=== PATIENT | male | born 1960 | race Caucasian/White ===

== ENCOUNTER 2017-11-27 07:23 | Emergency (ER) | payer OTHER, BC ==
[2017-11-27 07:35] VITALS: RESP 18; TEMP 98.2
[2017-11-27] MEDS ORDERED: SODIUM CHLORIDE 0.9% 1,000 ML IV STA (07:44)
--- NOTE | 2017-11-27 07:47 | ED ---
General Adult HPI - General Chief complaint: Abdominal Pain Stated complaint: Abdominal Pain Time Seen by Provider: 11/27/17 07:38 Source: patient, RN notes reviewed Mode of arrival: ambulatory Limitations: no limitations - History of Present Illness Initial comments: Patient's a 56-year-old male presented to the emergency room today with a chief complaint of right-sided abdominal pain on and off over the last month. Patient does admit that it was worse over the last 2 days. He states it was a sharp pain now is more just a dull pain located in the right side of the abdomen. Currently rates it a /10. He states he has noticed some bouts of some constipation at times but states he has been having normal bowel movements. He does admit that at times be worse after eating. Patient denies any other complaints or symptoms currently. Patient denies any recent fever, chills, shortness of breath, chest pain, back pain, dysuria or hematuria, constipation or diarrhea, headaches or visual changes, or any other complaints. - Related Data Home Medications Medication Instructions Recorded Confirmed Aspirin EC [Ecotrin Low Dose] 81 mg PO DAILY 11/27/17 11/27/17 Glimepiride [Amaryl] 1 mg PO BID 11/27/17 11/27/17 Lisinopril [Zestril] 2.5 mg PO DAILY 11/27/17 11/27/17 Pravastatin Sodium [Pravachol] 80 mg PO HS 11/27/17 11/27/17 metFORMIN HCL ER [Glucophage Xr] 500 mg PO DAILY 11/27/17 11/27/17 Allergies Allergy/AdvReac Type Severity Reaction Status Date / Time No Known Allergies Allergy Verified 11/27/17 07:54 Review of Systems ROS Statement: Those systems with pertinent positive or pertinent negative responses have been documented in the HPI. ROS Other: All systems not noted in ROS Statement are negative. Past Medical History Past Medical History: Diabetes Mellitus, Hyperlipidemia, Hypertension Additional Past Medical History / Comment(s): peptic ulcers History of Any Multi-Drug Resistant Organisms: None Reported Past Surgical History: Tonsillectomy Additional Past Surgical History / Comment(s): R heel surgery Past Psychological History: No Psychological Hx Reported Smoking Status: Never smoker Past Alcohol Use History: Occasional Past Drug Use History: None Reported General Exam - General Exam Comments Initial Comments: General: The patient is awake and alert, in no distress, and does not appear acutely ill. Eye: Extra-ocular movements are intact. No nystagmus. There is normal conjunctiva bilaterally. No signs of icterus. Ears, nose, mouth and throat: There are moist mucous membranes and no oral lesions. Neck: The neck is supple, there is no tenderness or JVD. Cardiovascular: There is a regular rate and rhythm. No murmur, rub or gallop is appreciated. Respiratory: Lungs are clear to auscultation, respirations are non-labored, breath sounds are equal. No wheezes, stridor, rales, or rhonchi. Gastrointestinal: Soft on palpation. Patient does have tenderness right lower quadrant. No rebound, guarding or CVA tenderness. Musculoskeletal: Normal ROM, no tenderness. Sensation intact. Strength 5/5. Pulses equal bilaterally 2+. Neurological: A&O x 3. CN II-XII intact, There are no obvious motor or sensory deficits. Coordination appears grossly intact. Speech is normal. Skin: Skin is warm and dry and no rashes or lesions are noted. Psychiatric: Cooperative, appropriate mood & affect, normal judgment. Limitations: no limitations Course Vital Signs 11/27/17 07:31 Temperature 98.2 F Pulse Rate 83 Respiratory 18 Rate Blood Pressure 145/93 O2 Sat by Pulse 96 Oximetry Medical Decision Making - Medical Decision Making Patient reexamined at this time shows no signs of stress is resting comfortably. His abdomen soft on palpation. Has minimal to no tenderness at this time. His CT of the abdomen and pelvis shows fatty liver and prostate hypertrophy. Results were discussed with the patient. There is no other sign of inflammation. Shows a normal gallbladder. Was discussed with patient about further evaluation with family physician and GI. He has seen Dr. Coello in the past. We'll be discharged home follow-up and advised to return if symptoms increase or worsen. - Lab Data Result diagrams: 11/27/17 07:55 11/27/17 07:55 Lab Results 11/27/17 11/27/17 11/27/17 Range/Units 07:55 07:55 07:55 WBC 5.5 (3.8-10.6) k/uL RBC 4.63 (4.30-5.90) m/uL Hgb 14.9 (13.0-17.5) gm/dL Hct 43.3 (39.0-53.0) % MCV 93.7 (80.0-100.0) fL MCH 32.3 (25.0-35.0) pg MCHC 34.4 (31.0-37.0) g/dL RDW 12.3 (11.5-15.5) % Plt Count 183 (150-450) k/uL Neutrophils % 55 % Lymphocytes % 33 % Monocytes % 7 % Eosinophils % 2 % Basophils % 1 % Neutrophils # 3.0 (1.3-7.7) k/uL Lymphocytes # 1.8 (1.0-4.8) k/uL Monocytes # 0.4 (0-1.0) k/uL Eosinophils # 0.1 (0-0.7) k/uL Basophils # 0.1 (0-0.2) k/uL Sodium 141 (137-145) mmol/L Potassium 4.4 (3.5-5.1) mmol/L Chloride 105 (98-107) mmol/L Carbon Dioxide 25 (22-30) mmol/L Anion Gap 11 mmol/L BUN 17 (9-20) mg/dL Creatinine 0.73 (0.66-1.25) mg/dL Est GFR (CKD-EPI)AfAm >90 (>60 ml/min/1.73 sqM) Est GFR (CKD-EPI)NonAf >90 (>60 ml/min/1.73 sqM) Glucose 199 H (74-99) mg/dL Calcium 9.8 (8.4-10.2) mg/dL Total Bilirubin 0.5 (0.2-1.3) mg/dL AST 58 (17-59) U/L ALT 59 (21-72) U/L Alkaline Phosphatase 41 (38-126) U/L Total Protein 7.2 (6.3-8.2) g/dL Albumin 4.3 (3.5-5.0) g/dL Amylase 53 (30-110) U/L Lipase 143 (23-300) U/L Urine Color Colorless Urine Appearance Clear (Clear) Urine pH 6.5 (5.0-8.0) Ur Specific [place] 1.007 (1.001-1.035) Urine Protein Negative (Negative) Urine Glucose (UA) 4+ H (Negative) Urine Ketones Negative (Negative) Urine Blood Negative (Negative) Urine Nitrite Negative (Negative) Urine Bilirubin Negative (Negative) Urine Urobilinogen <2.0 (<2.0) mg/dL Ur Leukocyte Esterase Negative (Negative) Disposition Clinical Impression: Abdominal pain Disposition: HOME SELF-CARE Condition: Good Instructions: Abdominal Pain (ED) Additional Instructions: Please use medication as discussed. Please follow-up with family doctor in the next 2 days of symptoms have not improved. Please return to emergency room if the symptoms increase or worsen or for any other concerns. Is patient prescribed a controlled substance at d/c from ED?: No Referrals: Demetrius Alvarado MD [Primary Care Provider] - 1-2 days Sean Douglas MD [STAFF PHYSICIAN] - 1-2 days Time of Disposition: 09:33
[2017-11-27 08:08] LABS: Basophils # (A) 0.1 k/uL (0-0.2); Basophils % (A) 1 %; Eosinophils # (A) 0.1 k/uL (0-0.7); Eosinophils % (A) 2 %; HCT 43.3 % (39.0-53.0); HGB 14.9 gm/dL (13.0-17.5); Lymphocytes # (A) 1.8 k/uL (1.0-4.8); Lymphocytes % (A) 33 %; MCH 32.3 pg (25.0-35.0); MCHC 34.4 g/dL (31.0-37.0); MCV 93.7 fL (80.0-100.0); Mean Platelet Volume 6.6; Monocytes # (A) 0.4 k/uL (0-1.0); Monocytes % (A) 7 %; Neutrophils % (A) 55 %; Platelet Count 183 k/uL (150-450); RBC 4.63 m/uL (4.30-5.90); RDW 12.3 % (11.5-15.5); WBC 5.5 k/uL (3.8-10.6)
[2017-11-27 08:19] LABS: ALT 59 U/L (21-72); AST 58 U/L (17-59); Albumin 4.3 g/dL (3.5-5.0); Alkaline Phosphatase 41 U/L (38-126); Amylase 53 U/L (30-110); Anion Gap 11 mmol/L; Blood Urea Nitrogen 17 mg/dL (9-20); Calcium 9.8 mg/dL (8.4-10.2); Carbon Dioxide 25 mmol/L (22-30); Chloride 105 mmol/L (98-107); Glucose 199 mg/dL (74-99); Lipase 143 U/L (23-300); Potassium 4.4 mmol/L (3.5-5.1); Sodium 141 mmol/L (137-145); Total Bilirubin 0.5 mg/dL (0.2-1.3); Total Protein 7.2 g/dL (6.3-8.2)
[2017-11-27 08:32] LABS: Appearance,Urine Clear (Clear); Bilirubin,Urine Negative (Negative); Blood,Urine Negative (Negative); Color,Urine Colorless; Glucose,Urine (UA) 4+ (Negative); Ketones,Urine Negative (Negative); Leukocyte Esterase,Urine Negative (Negative); Nitrite,Urine Negative (Negative); PH, Urine 6.5 (5.0-8.0); Protein,Urine Negative (Negative); Specific Gravity,Urine 1.007 (1.001-1.035); Urobilinogen,Urine <2.0 mg/dL (<2.0)
--- NOTE | 2017-11-27 09:13 | CT ---
EXAMINATION TYPE: CT abdomen pelvis w con DATE OF EXAM: 11/27/2017 COMPARISON: None INDICATION: Right sided abdominal pain DLP: 1371 mGycm, Automated exposure control for dose reduction was used. CONTRAST: 100 mL of Isovue 300. Study performed without Oral Contrast TECHNIQUE: Axial images were obtained from above the diaphragm to the pubic rami in the axial plane a t 5 mm thick sections. Reconstructed images are reviewed on the computer in the coronal plane. FINDINGS: Limited CT sections are obtained the lung bases. The lung bases are clear. CT ABDOMEN: Liver: There is moderate fatty infiltration to the liver. No discrete masses are evident. Spleen: Normal Pancreas: Normal Adrenal glands: The adrenal glands are normal. Gallbladder: Normal Kidneys: No masses are evident. No hydronephrosis is present. No cysts are present. There is a 0.5 cm nonobstructing inferior pole right renal stone. Aorta: Normal Inferior vena cava: Normal. CT PELVIS: Loops of bowel within the abdomen and pelvis are normal. Study is without oral contrast limiting the evaluation. Appendix: Normal as visualized. Urinary bladder: Normal. Genitourinary structures: Prostate is prominent and contains some calcification. Osseous structures: No suspicious lytic or sclerotic lesions. Sacroiliac joint degenerative changes a re present. IMPRESSIONS: 1. Nonobstructing inferior pole right renal stone. 2. Moderate fatty infiltration the liver. 3. Prostate hypertrophy
[2017-11-27 10:40] VITALS: BP 150/85; PULSE 75
== END 2017-11-27 10:38 | disposition home or self-care (01) ==
LOC: EC 07:23
DX: R10.9 Unspecified abdominal pain (principal); K59.00 Constipation, unspecified; R16.0 Hepatomegaly, not elsewhere classified; N40.0 Benign prostatic hyperplasia without lower urinary tract symptoms; E78.5 Hyperlipidemia, unspecified; I10 Essential (primary) hypertension; E11.9 Type 2 diabetes mellitus without complications; Z79.82 Long term (current) use of aspirin; Z79.84 Long term (current) use of oral hypoglycemic drugs; Z79.899 Other long term (current) drug therapy
CPT/HCPCS: 36415; 80053; 82150; 83690; 85025; 81003; 74177; 99284; 96360; 96361; Q9967

== ENCOUNTER → 2020-07-16 | Outpatient (CLI) | payer OTHER, BC ==
[2020-07-16 11:29] LABS: Appearance,Urine Clear (Clear); Bilirubin,Urine Negative (Negative); Blood,Urine Negative (Negative); Color,Urine Light Yellow; Glucose,Urine (UA) 4+ (Negative); Ketones,Urine Negative (Negative); Leukocyte Esterase,Urine Negative (Negative); Nitrite,Urine Negative (Negative); Protein,Urine Negative (Negative); Specific Gravity,Urine 1.011 (1.001-1.035); Urobilinogen,Urine <2.0 mg/dL (<2.0)
[2020-07-16 12:28] LABS: HGB 14.7 gm/dL (13.0-17.5); MCH 32.5 pg (25.0-35.0); MCHC 34.2 g/dL (31.0-37.0); MCV 95.1 fL (80.0-100.0); Mean Platelet Volume 7.2; Platelet Count 152 k/uL (150-450); RBC 4.52 m/uL (4.30-5.90); RDW 12.7 % (11.5-15.5)
[2020-07-16 12:32] LABS: ALT 95 U/L (4-49); AST 86 U/L (17-59); African American GFR (CKD) >90 (>60 ml/min/1.73 sqM); Albumin 4.9 g/dL (3.5-5.0); Alkaline Phosphatase 59 U/L (38-126); Anion Gap 9 mmol/L; Blood Urea Nitrogen 14 mg/dL (9-20); Calcium 10.1 mg/dL (8.4-10.2); Carbon Dioxide 27 mmol/L (22-30); Chloride 101 mmol/L (98-107); Glucose 205 mg/dL (74-99); Non-African American GFR(CKD) >90 (>60 ml/min/1.73 sqM); Potassium 4.5 mmol/L (3.5-5.1); Sodium 137 mmol/L (137-145); Total Bilirubin 0.7 mg/dL (0.2-1.3); Total Protein 7.6 g/dL (6.3-8.2)
[2020-07-16 12:33] LABS: Prothrombin Time 10.5 sec (9.0-12.0)
== END | disposition home or self-care (01) ==
LOC: LABPAT 09:58
PROVIDERS: ATTEND Orthopaedic Surgery
DX: Z01.818 Encounter for other preprocedural examination (principal); M16.12 Unilateral primary osteoarthritis, left hip
CPT/HCPCS: 36415; 80053; 81003; 85027; 85610; 85730; 87070; 93005

== ENCOUNTER 2020-07-27 05:37 | Day surgery (SDC) | payer OTHER, BC ==
[2020-07-23 08:54] VITALS: BMI 30.2
[~2020-07-27 05:37] MED LIST: ACETAMINOPHEN TAB 500 MG TAB PO PRN; GABAPENTIN 300 MG CAP PO PRN; MELOXICAM 7.5 MG TAB PO PRN; TRANEXAMIC ACID 1,000 MG in SODIUM CHLORIDE 0.9% 100 ML IVPB PRN
[2020-07-27] MEDS ORDERED: ONDANSETRON 4 MG/2 ML VIAL IVP ONE (05:40)
[2020-07-27] MEDS ORDERED: LIDOCAINE 1% (10MG/ML) FOR IV START INTRADERMA PRN (05:40)
[2020-07-27] MEDS ORDERED: LACTATED RINGERS 1,000 ML IV SCH (05:40)
[2020-07-27] MEDS ORDERED: DEXAMETHASONE SOD PHOSPHATE 4 MG/ML 1 ML VIAL IVP ONE (06:00)
[2020-07-27] MEDS ORDERED: SCOPOLAMINE 1.5MG/72HR PATCH TRANSDERM ONE (06:00)
[2020-07-27 06:22] LABS: Glucose,Whole Blood 178 mg/dL (75-99)
[2020-07-27] MEDS ORDERED: TRANEXAMIC ACID 1,000 MG/10 ML VIAL ONE (06:50)
[2020-07-27] MEDS ORDERED: GLYCOPYRROLATE 0.2 MG/ML 2 ML VIAL ONE (06:50)
[2020-07-27] MEDS ORDERED: SODIUM CHLORIDE 0.9% IRRIG 1,000 ML BTL IRRIGATION ONE (06:50)
[2020-07-27] MEDS ORDERED: fentaNYL (PF) 50 MCG/ML 2 ML AMP ONE (06:50)
[2020-07-27] MEDS ORDERED: NEOSTIGMINE 1 MG/ML 10 ML VIAL ONE (06:50)
[2020-07-27] MEDS ORDERED: SODIUM CHLORIDE 0.9% 100 ML BAG ONE (06:50)
[2020-07-27] MEDS ORDERED: PROPOFOL 10 MG/ML 20 ML VIAL IV ONE (06:50)
[2020-07-27] MEDS ORDERED: HEPARIN SODIUM,PORCINE 10,000 UNIT/ML 1 ML VIAL ONE (06:50)
[2020-07-27] MEDS ORDERED: ROCURONIUM 10 MG/ML (5 ML VIAL) IV ONE (06:50)
[2020-07-27] MEDS ORDERED: SUCCINYLCHOLINE CHLORIDE 100 MG/5 ML SYR IV ONE (06:50)
[2020-07-27] MEDS ORDERED: MIDAZOLAM 2 MG/2 ML VIAL ONE (06:50)
[2020-07-27] MEDS ORDERED: LIDOCAINE 1% INJ 10MG/ML (20 ML MDV) ONE (06:50)
[2020-07-27] MEDS ORDERED: ceFAZolin 3,000 MG in SODIUM CHLORIDE 0.9% IRRIGATIO 3,000 ML IRRIGATION ONE (07:25)
[2020-07-27] MEDS: ROPIVACAINE/EPI/CLONIDINE/KET 50 ML SYRINGE MISCELLANE PRN ×2 (07:32→08:08)
--- NOTE | 2020-07-27 08:16 | P.OP ---
Date of Procedure: 07/27/20 Preoperative Diagnosis: Severe osteoarthritis left hip Postoperative Diagnosis: Severe osteoarthritis left hip Procedure(s) Performed: Left total hip arthroplasty with a direct anterior approach Implants: [employer] Polarstem standard size 6 [employer] R3, 3 hole hemispherical acetabular shell, 54 mm [employer] Reflection 6.5 mm cancellus screw, 20 mm 2 [employer] R3, XLPE 20 acetabular liner [employer] Oxinium femoral head 36 m, +0 All components were press-fit. The articulation is Oxinium on polyethylene. Anesthesia: GETA Surgeon: Stephan Corona Meteorological Aide #1: Shira Gandara Estimated Blood Loss (ml): 140 (70 mL returned with Cell Saver) Pathology: other (Femoral head) Condition: stable Disposition: PACU Indications for Procedure: After failure of conservative treatment we discussed the surgical and nonsurgical treatment options at length. Patient wishes to proceed with a total hip arthroplasty with a direct anterior approach. Complications specific to this procedure were discussed at length, including but not limited to infection, leg length discrepancy, dislocation, nerve injury, and fracture. Covid-19 was also discussed at length with the patient, and they are aware of the current policies and procedures. The patient was given the option of delaying surgery, but they elect to proceed knowing these risks. Patient is aware of all these complications and informed consent was obtained Operative Findings: The operative findings are consistent with severe osteoarthritis of the right hip Description of Procedure: Patient was seen and evaluated in the preoperative area and the consent was reviewed. The operative site was marked with a skin marker. The patient was then brought to the operating room and given preoperative antibiotics intravenously. 1 g of Tranexamic acid was also given intravenously. A general anesthetic was administered by the anesthesia department. The patient was then placed on the [place] table with the bony prominences well-padded. The hip area was then prepped with a ChloraPrep solution and draped in the usual sterile fashion. A universal timeout was then performed, which confirmed the patient's name, surgical site, ALLERGIES, and procedure being performed on the consent. Next the incision site was located at 1 cm distal to the anterior superior iliac spine along the flexion crease of the hip. The skin and subcutaneous tissues were sharply incised. Incision was carefully dissected down to the fascia overlying the tensor fascia dedra muscle. This fascia was then incised in line with the incision. Care was taken to stay laterally in order to avoid injuring the lateral femoral cutaneous nerve. Next, using blunt finger dissection, the tensor fascia dedra muscle was dissected off its investing fascia. The muscle was then carefully retracted laterally with a cobra retractor over the lateral neck of the femur. Next, the circumflex vessels were identified and cauterized using the AquaMantis device. The anterior hip capsule was then exposed. The capsule was then opened and an inverted T fashion. Cobra retractors were then placed intracapsularly. The retractors were maintained intracapsular throughout the procedure. The proximal femur was then visualized. A small amount of traction was placed on the leg. The femoral neck was then osteotomized appropriate level above the lesser trochanter. A small wedge of bone was then removed from the remaining femoral head. Next, using a corkscrew the femoral head was removed from the acetabulum. On gross visual inspection, the femoral head had complete loss of articular cartilage and multiple periarticular osteophytes. The femoral head was then measured. Attention was then turned to the acetabulum. The acetabulum was exposed and any remaining labrum was excised. Sequential reaming of the acetabulum was performed using fluoroscopic guidance until there was a good bed of bleeding cancellus bone. When the appropriate size was reached, a trial was then placed. The position and fit of the trial was checked with fluoroscopy. The trial was then removed. Then, using fluoroscopic guidance, the final implant was impacted at 20 of anteversion and 40 of abduction, and fully seated in the acetabulum. 2 screws were then placed in the acetabulum. Again fluoroscopy was used to check position of the screws. Next, the liner was then impacted, with a 20 elevated liner located in the anterior superior quadrant. Component locking was confirmed. Attention was then directed to the femur. With the aid of the [place] table, the femur was externally rotated to approximately 130, extended, and adducted under the opposite leg. A side hook was then placed under the proximal femur, and the side hook elevator was used to elevate the proximal femur while releasing the capsule. Retractors were then placed. A capsular release was performed, as well as a release of the conjoined tendon, which afforded excellent visualization of the proximal femur. Next, a box osteotome was used to lateralize the proximal femur. A kettle hand was then used to locate the femoral canal. Sequential broaching was then performed with appropriate size which afforded excellent fixation in the proximal femur. A trial was then placed with appropriate head and neck, and the hip was gently reduced with the a id of the [place] table. Fluoroscopy was then used to check position of the components, as well as to ensure equal leg lengths. The hip was then gently dislocated and the trials were then removed. Final implants were then impacted and the hip was again reduced. Final fluoroscopic x-rays confirmed that the components were in anatomic position, as well as equal leg lengths. The hip was also taken through range of motion, and found to be stable. The hip was then copiously irrigated with antibiotic solution with pulsatile lavage. The hip was then irrigated with Irrisept solution. The soft tissues were then injected with a ropivacaine solution, which consisted of 246.25 mg of ropivacaine, 0.5 mg of epinephrine, 30 mg of Toradol, 80 g of clonidine, and 48.45 mL of sterile water, for a total of 100 mL of fluid injected. A second dose of 1 g of Tranexamic acid was also given intravenously. Any blood collected by Cell Saver was then returned to the patient at this time. The fascia was then closed with 2-0 strata fix suture. The subcutaneous tissue was closed with 3-0 Vicryl. The subcuticular tissue was closed with 3-0 strata fix suture. The skin was then closed with Exofin skin glue. After the glue and dried, and Optifoam silver impregnated dressing was applied. The patient was then transferred to the recovery room in stable condition. The health care assistant FRANNY Brooks was required due to the complexity of surgery, and the need for skilled surgical scrub technologist for positioning, draping, exposure, retraction, and closure of the wound.
[2020-07-27] MEDS ORDERED: HYDROmorphone 1 MG/ML 1 ML SYRINGE IVP PRN (08:40)
[2020-07-27] MEDS ORDERED: HYDROmorphone 0.5 MG/0.5 ML SYRINGE IVP PRN (08:40)
[2020-07-27] MEDS ORDERED: NALOXONE 0.4 MG/ML 1 ML VIAL IV PRN (08:40)
[2020-07-27] MEDS ORDERED: HYDROmorphone 0.2 MG/1 ML SYRINGE IVP PRN (08:40)
[2020-07-27] MEDS ORDERED: ONDANSETRON 4 MG/2 ML VIAL IVP PRN (08:40)
[2020-07-27 08:42] VITALS: TEMP 97.1
[2020-07-27] MEDS ORDERED: HYDROcodone/APAP 7.5-325MG 1 EACH TAB PO PRN ×2 (08:42)
[2020-07-27] MEDS ORDERED: SODIUM CHLORIDE 0.9% 1,000 ML IV SCH (08:45)
[2020-07-27] MEDS: HYDROmorphone 0.5 MG/0.5 ML SYRINGE IVP PRN ×4 (08:56→09:40)
--- NOTE | 2020-07-27 09:11 | XR ---
EXAMINATION TYPE: XR Hip Limited LT DATE OF EXAM: 07/27/2020 COMPARISON: NONE HISTORY: 59-year-old male status post hip surgery, assess cervical alignment TECHNIQUE: AP view FINDINGS: Left total hip arthroplasty. Acetabular cup and femoral stem components of the prosthesis a ppear well seated without periprosthetic fracture. Alignment grossly anatomic. Scattered soft tissue air related to recent operation. IMPRESSION: Uncomplicated postoperative appearance left total hip arthroplasty.
[2020-07-27 09:17] LABS: Glucose,Whole Blood 278 mg/dL (75-99)
[2020-07-27] MEDS ORDERED: INSULIN ASPART (NovoLOG) 100 UNIT/ML VIAL SQ ONE ×3 (09:24→13:20)
[2020-07-27] MEDS ORDERED: SODIUM CHLORIDE 0.9% 1,000 ML IV ONE ×2 (09:30)
[2020-07-27] MEDS ORDERED: LACTATED RINGERS 1,000 ML IV ONE (09:30)
--- NOTE | 2020-07-27 10:10 | XR ---
EXAMINATION TYPE: XR Hip Limited LT DATE OF EXAM: 07/27/2020 COMPARISON: NONE HISTORY: Postop TECHNIQUE: One view submitted. FINDINGS: There is postsurgical change in near anatomic alignment. There is soft tissue edema and emphysema. IMPRESSION: 1. Postoperative change. Appears in near-anatomic alignment.
--- NOTE | 2020-07-27 10:13 | FL ---
EXAMINATION TYPE: FL guidance operating room DATE OF EXAM: 07/27/2020 HISTORY: Fluoroscopy time 18 seconds of fluoroscopy provided. IMPRESSION: 1. Fluoroscopy time.
[2020-07-27 10:18] VITALS: RESP 16
[2020-07-27 11:46] LABS: Glucose,Whole Blood 218 mg/dL (75-99)
[2020-07-27] MEDS ORDERED: HYDROcodone/APAP 7.5-325MG 1 EACH TAB PO ONE (12:36)
[2020-07-27 13:12] LABS: Glucose,Whole Blood 237 mg/dL (75-99)
[2020-07-27 13:44] VITALS: BP 116/58; PULSE 81
[2020-07-27 13:56] LABS: Glucose,Whole Blood 233 mg/dL (75-99)
== END 2020-07-27 14:23 | disposition home health service (06) ==
LOC: OR 05:37
PROVIDERS: ATTEND Orthopaedic Surgery
DX: M16.11 Unilateral primary osteoarthritis, right hip (principal); E78.5 Hyperlipidemia, unspecified; E11.9 Type 2 diabetes mellitus without complications; Z79.899 Other long term (current) drug therapy; Z79.84 Long term (current) use of oral hypoglycemic drugs; Z79.82 Long term (current) use of aspirin; I10 Essential (primary) hypertension; Z87.442 Personal history of urinary calculi; Z88.1 Allergy status to other antibiotic agents
CPT/HCPCS: 27130; 97110; 97161; 86891; 86900; 86901; 86850; 88300; 87635; 73501; P9022; C1776; J2250; J1644; J1100; J2710; J0690 ×2; J2405; J2001; J3010; J0330; J2704; J1170

== ENCOUNTER → 2023-07-05 | Outpatient (CLI) | payer BC ==
[2023-07-05 10:48] LABS: African American GFR (CKD) >90 (>60 ml/min/1.73 sqM); Blood Urea Nitrogen 15 mg/dL (9-20); Non-African American GFR(CKD) >90 (>60 ml/min/1.73 sqM)
--- NOTE | 2023-07-05 12:27 | CT ---
EXAMINATION TYPE: CT chest w con DATE OF EXAM: 07/05/2023 COMPARISON: HISTORY: nodules CT DLP: 490.2 mGycm Automated exposure control for dose reduction was used. CONTRAST: CT scan of the chest is performed with IV Contrast, patient injected with 100 mL of Isovue 300. FINDINGS: LUNGS: Ill-defined right perihilar opacity with surrounding groundglass density and numerous adjacent calcified lymph nodes. The findings may be inflammatory/postinflammatory in nature however underlyin g neoplasm is not excluded. Consider PET/CT for further characterization. The remainder of the lungs are clear. There is no pleural effusion or pneumothorax seen. The tracheobronchial tree is patent. MEDIASTINUM: There are no greater than 1 cm hilar or mediastinal lymph nodes. Numerous subcentimeter calcified hilar and mediastinal lymph nodes seen. No pericardial effusion is seen. Thoracic aorta i s of normal caliber. The heart is not enlarged. UPPER ABDOMEN: Hepatic steatosis. OTHER: No additional significant abnormality is seen. IMPRESSION: Ill-defined right perihilar opacity with surrounding groundglass density and numerous ad jacent calcified lymph nodes. The findings may be inflammatory/postinflammatory in nature however und erlying neoplasm is not excluded. Consider PET/CT for further characterization.
== END | disposition home or self-care (01) ==
LOC: RADCTMAIN 09:48
PROVIDERS: ATTEND Internal Medicine
DX: I89.8 Other specified noninfective disorders of lymphatic vessels and lymph nodes (principal); R91.8 Other nonspecific abnormal finding of lung field
CPT/HCPCS: 82565; 84520; 71260; 36415; Q9967

== ENCOUNTER 2023-08-30 11:09 | Day surgery (SDC) | payer BC ==
[2023-08-28 10:24] VITALS: BMI 29.5
[~2023-08-30 11:09] MED LIST changes: -ACETAMINOPHEN TAB 500 MG TAB PO PRN; -GABAPENTIN 300 MG CAP PO PRN; +LACTATED RINGERS 1,000 ML IV SCH; -MELOXICAM 7.5 MG TAB PO PRN; -TRANEXAMIC ACID 1,000 MG in SODIUM CHLORIDE 0.9% 100 ML IVPB PRN
[2023-08-30 11:37] VITALS: TEMP 97.5
[2023-08-30 11:52] LABS: Glucose,Whole Blood 218 mg/dL (70-110)
[2023-08-30] MEDS: IV FLUID CONTINUATION 1,000 ML IV ONE ×2 (11:56→12:09)
[2023-08-30] MEDS: LACTATED RINGERS 1,000 ML IV SCH (11:57)
[2023-08-30] MEDS ORDERED: PROPOFOL 10 MG/ML 20 ML VIAL IV ONE (12:10)
[2023-08-30] MEDS ORDERED: ESMOLOL 100 MG/10 ML VIAL ONE (12:10)
[2023-08-30] MEDS ORDERED: LIDOCAINE 1% INJ 10MG/ML (20 ML MDV) ONE (12:10)
[2023-08-30] MEDS ORDERED: MIDAZOLAM 2 MG/2 ML VIAL ONE (12:10)
[2023-08-30] MEDS ORDERED: GLYCOPYRROLATE 0.2 MG/ML 2 ML VIAL ONE (12:10)
[2023-08-30] MEDS ORDERED: KETAMINE HCL IN 0.9 % NACL 50 MG/5 ML SYRINGE ONE (12:10)
[2023-08-30] MEDS: LIDOCAINE 2% INJ 20 MG/ML INTRATRACH ONE (12:20)
[2023-08-30 13:00] VITALS: BP 133/76; PULSE 86; RESP 18
--- NOTE | 2023-08-30 13:09 | OP ---
OPERATIVE REPORT DATE OF SERVICE : OPERATIVE REPORT: Bronchoscopy and bronchoalveolar lavage of the right upper lobe and right middle lobe. PREOPERATIVE DIAGNOSIS: Persistent post inflammatory changes and right upper lobe from previous pneumonia. POSTOPERATIVE DIAGNOSIS: Persistent post inflammatory changes and right upper lobe from previous pneumonia. ANESTHESIA USED: IV conscious sedation. DESCRIPTION OF PROCEDURE: The patient was brought in to the bronchoscopy suite, placed in a supine position, a bite block was applied, O2 was applied via Ventimask. The patient was monitored, O2 saturation was continuously monitored, blood pressure was intermittently monitored, and cardiac rhythm was continuously monitored. After adequate IV conscious sedation, the bronchoscope was inserted through the bite block down to the area of the vocal cords. The vocal cords were noted to be patent. Then lidocaine was applied over the vocal cords and the bronchoscope was advanced further down. Visualized the trachea, which seemed to be extremely inflamed, red, and no purulent secretions noted. Further down, we examined the xander which was noted to be sharp, then reviewed and examined the right upper lobe, right middle lobe, right lower lobe, left upper lobe lingula and left lower lobe. Mucosa of the airways was noted to be bronchiectatic, inflamed, friable, and swollen. This was noted throughout the airways. Then, the right upper lobe bronchus was noted to be a bit narrowed and thickened, but no evidence of any endobronchial tumor noted. Lavage of the right upper lobe was performed and the fluid was sent for different diagnostic studies. The right middle lobe bronchus was also noted to be narrowed, however, I was able to enter the right middle lobe and visualized the medial and the lateral segment, lavage of both was also done. No endobronchial tumors were noted, again there was significant inflammation of the airways, but no clear-cut evidence of any endobronchial lesions. The procedure was well tolerated, fluid from the right upper lobe and from the right middle lobe sent for different diagnostic studies. No complications. MMODL / IJN: [id number] /
[2023-08-30 20:17] LABS: Appearance,BF Blood Tinged (Clear); RBC, Body Fluid 8025 /UL (0-2000)
[2023-08-30 20:19] LABS: Appearance,BF Blood Tinged (Clear); RBC, Body Fluid 6700 /UL (0-2000)
[2023-08-31 10:19] LABS: Nucleated Cells, Body Fluid 420 /UL
[2023-08-31 10:21] LABS: Nucleated Cells, Body Fluid 380 /UL
== END 2023-08-30 13:11 | disposition home or self-care (01) ==
LOC: ORWHC2ENDO 11:09
PROVIDERS: ATTEND Internal Medicine
DX: J18.9 Pneumonia, unspecified organism (principal); J40 Bronchitis, not specified as acute or chronic; I10 Essential (primary) hypertension; E78.5 Hyperlipidemia, unspecified; E11.9 Type 2 diabetes mellitus without complications; Z79.82 Long term (current) use of aspirin; Z79.899 Other long term (current) drug therapy; Z90.89 Acquired absence of other organs
CPT/HCPCS: 88108; 88305; 89050; 87070; 87205; 87116; 87102; 87206; 31624; J2001 ×2; J2250; J2704; J1805; J1596

== ENCOUNTER → 2023-11-10 | Outpatient (CLI) | payer BC ==
[2023-11-10 10:52] LABS: African American GFR (CKD) >90 (>60 ml/min/1.73 sqM); Blood Urea Nitrogen 11 mg/dL (9-20); Non-African American GFR(CKD) >90 (>60 ml/min/1.73 sqM)
--- NOTE | 2023-11-10 11:34 | CT ---
EXAMINATION TYPE: CT chest w con DATE OF EXAM: 11/10/2023 COMPARISON: 07/05/2023 HISTORY: PULMONARY NODULE CT DLP: 538.70 mGycm Automated exposure control for dose reduction was used. TECHNIQUE: CT scan of the chest is performed with IV Contrast, patient injected with 100 mL of Isovue 300. MIP Images are created on CT scanner and reviewed. 3D reconstructed images are created on an independent workstation and reviewed. FINDINGS: The size density and configuration of the right hilar and perihilar soft tissue density is stable. Th ere are calcified right hilar and mediastinal lymph nodes. The findings suggest a remote inflammatory process. Additional follow-up CT thorax is recommended in 4-6 months to confirm stability. There is no new mass or nodule. There is no airspace consolidation. There is no pleural effusion or pneumothorax. The great vessels chest are normal and there is no mediastinal, hilar or axillary adenopathy. Limited scanning through the upper abdomen reveals steatosis No focal osseous lesions are seen. IMPRESSION: Stable appearing abnormal soft tissue in the right hilar and perihilar region with calcified lymph no leigh likely reflecting a chronic inflammatory process. Additional follow-up CT thorax is recommended i n 4 to 6 months to assess stability. No new abnormality seen. [facility], , 11/10/2023 11:32 AM
== END | disposition home or self-care (01) ==
LOC: RADCTMAIN 10:09
PROVIDERS: ATTEND Internal Medicine
DX: R91.8 Other nonspecific abnormal finding of lung field
CPT/HCPCS: 36415; 71260; 82565; 84520